=== PATIENT | female | born 1955 | race Caucasian/White ===

== ENCOUNTER 2018-03-21 07:19 | Day surgery (SDC) | payer BC, OTHER ==
[~2018-03-21 07:19] MED LIST: Lactated Ringers 1,000 ML IV SCH
[2018-03-21] MEDS ORDERED: Propofol 200 MG/20 ML SDV ONE ×2 (08:27→09:23)
[2018-03-21] MEDS ORDERED: fentaNYL 100 MCG/2 ML SDV ONE (08:27)
--- NOTE | 2018-03-21 14:37 | OR ---
PREOPERATIVE DIAGNOSIS: Positive FIT test. POSTOPERATIVE DIAGNOSIS: Sigmoid diverticulosis, otherwise normal exam. PROCEDURE PROPOSED: Total flexible colonoscopy. PROCEDURE DONE: Total flexible colonoscopy. INDICATION: This is a 62-year-old female who comes in for a recommended colonoscopy and this will be her 1st examination. She was found to have a positive FIT test. She denies any symptomatology and she has a negative family history for any colon polyps or cancer. TECHNIQUE: The patient was brought to the endoscopy suite, placed in left lateral decubitus position. She was sedated per [employer]. The flexible video colonoscope was then passed transanally and under visualization advanced to the cecum. Examination revealed a normal ascending, transverse, descending colon. In the sigmoid colon, she was found to have some mild diverticulosis and the rectum was normal. There was no evidence of any polyps or colitis or other abnormalities. The scope was then withdrawn. She tolerated procedure well. FINAL IMPRESSION: Sigmoid diverticulosis, otherwise normal exam. PLAN: The patient reassured. I felt that she could wait 10 years before she needs a repeat exam. SCM: 03/21/2018 09:36:40 MODL: 03/21/2018 14:32:59 /[id number]
== END 2018-03-21 11:01 | disposition home or self-care (01) ==
LOC: VM.SDS 07:19
PROVIDERS: ATTEND Surgery
DX: R19.5 Other fecal abnormalities (principal); K57.30 Diverticulosis of large intestine without perforation or abscess without bleeding; I48.1 Persistent atrial fibrillation; E78.00 Pure hypercholesterolemia, unspecified; Z79.01 Long term (current) use of anticoagulants; Z79.899 Other long term (current) drug therapy
CPT/HCPCS: 45378; J2704; J3010; J7120

== ENCOUNTER 2021-02-22 15:10 | Emergency (ER) | payer BC ==
[2021-02-22 15:48] LABS: CHLORIDE,CL 104 mmol/L (98-107); ESTIMATED GFR 50; PTT,PARTIAL THROMBOPLSTIN TIME 25.1 SEC (25.6-32.8); SODIUM,NA 142 mmol/L (136-145)
[2021-02-22 15:58] LABS: ANION GAP 12.7 mmol/L (5-15)
== END 2021-02-22 18:45 | disposition home or self-care (01) ==
LOC: VM.ED 15:10
DX: G45.9 Transient cerebral ischemic attack, unspecified (principal); I48.91 Unspecified atrial fibrillation; E78.00 Pure hypercholesterolemia, unspecified; Z79.01 Long term (current) use of anticoagulants; Z79.899 Other long term (current) drug therapy
CPT/HCPCS: 36415; 70450; 70496; 80053; 82947; 84484; 85025; 85610; 85730; 93005; 93010; 99285; 99285-25

== ENCOUNTER 2021-06-19 00:17 | Emergency (ER) | payer BC ==
[2021-06-19 00:57] LABS: PTT,PARTIAL THROMBOPLSTIN TIME 23.7 SEC (20.5-30.9)
[2021-06-19 01:02] LABS: CHLORIDE,CL 106 mmol/L (98-107); SODIUM,NA 143 mmol/L (136-145)
[2021-06-19 01:03] LABS: ANION GAP 14.2 mmol/L (5-15)
== END 2021-06-19 01:09 | disposition short-term general hospital (02) ==
LOC: VM.ED 00:17
DX: I63.9 Cerebral infarction, unspecified (principal); I48.91 Unspecified atrial fibrillation; E78.00 Pure hypercholesterolemia, unspecified; Z79.01 Long term (current) use of anticoagulants; Z79.899 Other long term (current) drug therapy
CPT/HCPCS: 36415; 70450; 80053; 84484; 85025; 85610; 85730; 93010; 99284; 99285-25

== ENCOUNTER 2024-07-05 15:22 | Emergency (ER) | payer OTHER, MEDICARE | END 2024-07-05 16:43 | disposition home or self-care (01) | LOC: VM.ED 15:22 | DX: S60.222A Contusion of left hand, initial encounter (principal); I48.91 Unspecified atrial fibrillation; E78.00 Pure hypercholesterolemia, unspecified; Z79.01 Long term (current) use of anticoagulants; Z79.899 Other long term (current) drug therapy; W18.39XA Other fall on same level, initial encounter; Y93.89 Activity, other specified; Y99.0 Civilian activity done for income or pay | CPT/HCPCS: 73130-LT; 99283 ==